=== PATIENT | male | born 1955 | race African-American/Black ===

== ENCOUNTER 2017-09-21 02:10 | Inpatient (IN) | payer MEDICARE ==
[~2017-09-21] VITALS: Ht 170.1 cm; Wt 90.4 kg
[2017-09-21] VITALS (10 sets, daily range): BP systolic 118–146; BP diastolic 69–85
--- NOTE | ~2017-09-21 | O ---
[place], [place] OPERATIVE NOTE NAME: JUANITA MALIK UNIT #: [id number] ROOM: 516 DOCTOR: JOSEPH MILLER,GOSIA BIRTHDATE: [birth year] DOS: 09/21/2017 GASTROENDOSCOPIC REPORT PROCEDURE: Today's procedure part of investigation of GI bleed is colonoscopy. PREMEDICATION: Versed and propofol. SCOPE: Olympus folding colonoscope 10L video. REPORT: After putting the patient in left lateral position and application of lubricant to the scope, the scope was introduced. Thereafter, under direct visualization, I advanced through the length of colon without difficulty. Base of the cecum explored, appendiceal site and ileocecal valve was photographed. Scope was withdrawn gradually. There is no gross bleeding; however, there was some old blood in the rectum, rectal pouch, which I washed and there was no evidence of ischemic colitis in segments. Scattered diverticulosis however noticed. GI reflection of the scope in the rectum does not yield gross internal hemorrhoids. Some external rectal tags were noticed. The patient has received an enema before colonoscopy that could have been traumatic and as a result some debris of blood in the rectum noticed. However, before his colonic prep, he has been complaining of rectal bleed as well. Therefore, this may signify that there is a small vasculature superficially bleeding at the rectum periodically. Therefore, we are going to consider Anucort-HC suppository 1 at bedtime. He is going to get regular diet today. Follow up on his H and H. We are going to withhold aspirin for 1 week if possible. GOSIA RUIZ MD CM:OPRECORD:OPERATIVE NOTE [id number] GOSIA RUIZ MD 09/21/17 1718 interface
--- NOTE | ~2017-09-21 | O ---
[place], [place] OPERATIVE NOTE NAME: JUANITA MALIK UNIT #: [id number] ROOM: [facility] DOCTOR: JOSEPH MILLERGOSIA BIRTHDATE: [birth year] DOS: 09/21/2017 GASTROENDOSCOPIC REPORT INDICATIONS: This gentleman has presented with a chief complaint of nausea, vomiting, abdominal pain, presence of blood in the stool. He had a CT scan of the abdomen and pelvis done in the Emergency Room, colonic diverticulosis, and cholelithiasis without evidence of cholecystitis. White blood cell was 5.9, H and H of 12 and 36. Lactic acid was normal. INR 1.0. Comprehensive metabolic panel, GFR greater than 60. Hypokalemia was corrected. Liver function test normal. Hemoglobin A1c 5.6. His H and H 11 and 31. PAST MEDICAL HISTORY: Past medical history associated with hypertension and hyperglycemia. PAST SURGICAL HISTORY: History of partial colectomy for diverticulitis, perforation. SOCIAL HISTORY: One case of beer per week, user of cannabis product, tobacco smoking as well. FAMILY HISTORY: Noncontributory. ALLERGIES: No known medication. MEDICATIONS: List including ranitidine and aspirin in addition to others reviewed. PROCEDURE: Today's procedure part of investigation is panendoscopy and colonoscopy. PREMEDICATION: Versed and propofol. SCOPE: Olympus forward-viewing gastroscope Q10 video. REPORT: After putting the patient in left lateral position and application of lubricant to the scope, the scope was introduced. Thereafter, under direct visualization, advanced through the length of esophagus without difficulty. Esophagus cervicothoracic distally within normal limit. Gastric pouch was entered. Evidence of gastritis was seen. Duodenal bulb, second and third part within normal limits. Antral biopsy obtained for H. pylori. IJ reflexion of the scope reveals cardia to be benign. Air was suctioned out. The patient was extubated, tolerated procedure well. IMPRESSION: Gastritis. No evidence of upper GI bleed actively. There was some droplets of the old blood in the gastric pouch signifying gastritis. The patient has been on aspirin. At this stage, we are going to proceed with colonoscopic evaluation. GASTROENDOSCOPIC REPORT [place], [place] OPERATIVE NOTE NAME: JUANITA MALIK UNIT #: [id number] ROOM: [facility] DOCTOR: JOSEPH MILLER,GOSIA BIRTHDATE: [birth year] PROCEDURE: Today's procedure part of investigation of GI bleed is colonoscopy. PREMEDICATION: Versed and propofol. SCOPE: Olympus folding colonoscope 10L video. REPORT: After putting the patient in left lateral position and application of lubricant to the scope, the scope was introduced. Thereafter, under direct visualization, advanced through the length of colon without difficulty. Base of the cecum explored, appendiceal site and ileocecal valve was photographed. Scope withdrawn gradually. There is no gross bleeding; however, there was some old blood in the rectum rectal pouch, which I washed and there was no evidence of ischemic colitis in segments. Scattered diverticulosis; however, noticed. GI reflection of the scope in the rectum does not yield gross internal hemorrhoids. Some external rectal tags were noticed. PLAN AND DISCUSSION: The patient has received an enema before colonoscopy that could have been traumatic and as a result some debris of blood in the rectum noticed. However, before is colonic prep he has been complaining of rectal bleed as well. Therefore, this may signify that there is a small vasculature superficially bleeding at the rectum periodically. Therefore, we are going to consider Anucort-HC suppository 1 at bedtime. He is going to get the regular diet today. Follow up on his H and H. We are going to withhold aspirin for 1 week if possible. GOSIA RUIZ MD CM:OPRECORD:OPERATIVE NOTE 1647 1517 GOSIA RUIZ MD 09/24/17 1516 interface
--- NOTE | ~2017-09-21 | O ---
[place], [place] OPERATIVE NOTE NAME: JUANITA MALIK UNIT #: [id number] ROOM: [facility] DOCTOR: GOSIA RUIZ MD BIRTHDATE: [birth year] DOS: 09/22/2017 GASTROENDOSCOPIC REPORT This is a 62-year-old patient who presented with chief complaint of rectal bleed, drop in H and H, status post previous partial colectomy on the right side. We are trying to define the source of bleeding, particularly that he has required 2 units of transfusion overnight bleed, today on aspirin, has been on hold. PROCEDURE: Today's part of investigation is colonoscopy. PREMEDICATION: Propofol. SCOPE: Olympus forwarding colonoscope 10L video. REPORT: After putting the patient in left lateral position and application of lubricant to rectal pouch and digital examination, scope was introduced. Thereafter, under direct visualization, advanced through the length of colon without difficulty. There is presence of blood all the way from the rectum to anastomotic site, therefore, visualization of detail losing site impractical. I approached anastomotic site with a high power water wash, I sprayed this area. There is no penetrated metallic clips or sutures that I can find, bleeding site cannot be defined. Scope was gradually withdrawn. Diverticulosis seen. The patient extubated, tolerated procedure well. IMPRESSION: Diverticulosis is status post right hemicolectomy with anastomotic site benign. PLAN AND DISCUSSION: We are going to hold Sandostatin. We are going to allow patient to stay in ICU, transfusion for blood count of 9 and 28 as necessary and standing by for bleeding scan, nuclear Radiology is going to be informed and in case he has another bloody BM and drop in H and H, we are going to proceed with bleeding scan. Sandostatin is going to be on hold. The patient is going to be kept on clear liquid. [place], [place] OPERATIVE NOTE NAME: JUANITA MALIK UNIT #: [id number] ROOM: [facility] DOCTOR: GOSIA RUIZ MD BIRTHDATE: [birth year] GOSIA RUIZ MD CM:OPRECORD:OPERATIVE NOTE 1634 1654 GOSIA RUIZ MD 09/22/17 1652 interface
[~2017-09-21 02:10] MED LIST: ASPIRIN81 M1 PO; AUGMENTIN 875875 MG PO; BP; CHOLESTEROL; DAYPRO600 M1 PO; HYDRODIURIL25 MG PO; MOTRIN800 MG PO; NAPROSYN250 MG PO; PEN-V500 MG PO; PRILOSEC20 M2 PO; RANITIDINE 7575 MG PO; SIMVASTATIN5 MG PO; VICODIN 5/500 505 MG PO
[2017-09-21 02:48] LABS: BASO % 0.5 % (0.0-1.0); EOS # 0.2 10*3/uL (0.0-0.4); EOS % 3.1 % (1.0-4.0); HEMATOCRIT 36.4 % (42.0-52.0); HEMOGLOBIN 12.7 g/dl (14.0-18.0); LYMPH # 2.9 10*3/uL (1.3-4.4); LYMPH % 48.3 % (27.0-41.0); MEAN CELL VOLUME 92.9 fl (80.0-94.0); MEAN CORPUSCULAR HGB 32.4 pg (27.0-31.0); MEAN CORPUSCULAR HGB CONC 34.9 g/dl (33.0-37.0); MEAN PLATELET VOLUME 9.7 fl (9.6-12.3); MONO # 0.7 10*3/uL (0.1-1.0); MONO % 11.2 % (3.0-9.0); NEUT # 2.2 10*3/uL (2.3-7.9); NEUT % 36.7 % (47.0-73.0); PLATELET COUNT AUTOMATED 208 10*3/uL (130-400); RED BLOOD COUNT 3.92 10*6/uL (4.50-5.90); WHITE BLOOD COUNT 5.9 10*3/uL (4.8-10.8)
[2017-09-21 02:58] LABS: ACT PARTIAL THROMBO TIME 21.6 SECONDS (20.8-31.5)
[2017-09-21 03:03] LABS: ALBUMIN 3.7 gm/dl (3.1-4.5); ALKALINE PHOSPHATASE 114 U/L (45-117); BUN 9 mg/dl (7-24); CHLORIDE 97 mmol/L (98-107); CREATININE 0.84 mg/dL (0.70-1.30); POTASSIUM 2.5 mmol/L (3.5-5.1); SGOT/AST 26 IU/L (3-35); SGPT/ALT 35 U/L (12-78); SODIUM 139 mmol/L (136-145); TOTAL PROTEIN 7.2 gm/dL (6.4-8.2)
[2017-09-21 08:01] LABS: BASO % 0.3 % (0.0-1.0); EOS # 0.1 10*3/uL (0.0-0.4); EOS % 0.8 % (1.0-4.0); HEMATOCRIT 31.9 % (42.0-52.0); HEMOGLOBIN 11.2 g/dl (14.0-18.0); LYMPH # 1.5 10*3/uL (1.3-4.4); LYMPH % 18.7 % (27.0-41.0); MEAN CELL VOLUME 93.8 fl (80.0-94.0); MEAN CORPUSCULAR HGB 32.9 pg (27.0-31.0); MEAN CORPUSCULAR HGB CONC 35.1 g/dl (33.0-37.0); MEAN PLATELET VOLUME 9.6 fl (9.6-12.3); MONO # 0.6 10*3/uL (0.1-1.0); MONO % 7.2 % (3.0-9.0); NEUT # 5.7 10*3/uL (2.3-7.9); NEUT % 72.6 % (47.0-73.0); PLATELET COUNT AUTOMATED 166 10*3/uL (130-400); WHITE BLOOD COUNT 7.9 10*3/uL (4.8-10.8)
[2017-09-21 08:22] LABS: ALBUMIN 3.4 gm/dl (3.1-4.5); BUN 10 mg/dl (7-24); CHLORIDE 101 mmol/L (98-107); CHOLESTEROL 103 mg/dL (<200); CREATININE 0.81 mg/dL (0.70-1.30); FREE T4 0.82 ng/dl (0.76-1.46); HDL CHOLESTEROL 53 mg/dl (40-60); LDL CHOLESTEROL 18 mg/dL (9-159); PHOSPHOROUS 3.8 mg/dL (2.5-4.9); POTASSIUM 3.2 mmol/L (3.5-5.1); SGOT/AST 24 IU/L (3-35); SGPT/ALT 30 U/L (12-78); SODIUM 138 mmol/L (136-145); TRIGLYCERIDES 161 mg/dl (<150); VLDL CHOLESTEROL 32 mg/dL (6-40)
[2017-09-21 08:27] LABS: ALKALINE PHOSPHATASE 95 U/L (45-117); TOTAL PROTEIN 6.3 gm/dL (6.4-8.2)
[2017-09-21 09:44] LABS: VITAMIN D, 25-HYDROXY 18.8 ng/mL (30-100)
[2017-09-21 12:16] LABS: HEMATOCRIT 31.7 % (42.0-52.0); HEMOGLOBIN 11.3 g/dl (14.0-18.0)
[2017-09-22] VITALS (14 sets, daily range): BP systolic 121–183; BP diastolic 56–90
[2017-09-22 06:25] LABS: BASO % 0.3 % (0.0-1.0); EOS # 0.1 10*3/uL (0.0-0.4); EOS % 1.5 % (1.0-4.0); HEMATOCRIT 26.8 % (42.0-52.0); LYMPH # 1.8 10*3/uL (1.3-4.4); LYMPH % 27.5 % (27.0-41.0); MEAN CELL VOLUME 96.8 fl (80.0-94.0); MEAN CORPUSCULAR HGB 32.5 pg (27.0-31.0); MEAN CORPUSCULAR HGB CONC 33.6 g/dl (33.0-37.0); MEAN PLATELET VOLUME 10.6 fl (9.6-12.3); MONO # 0.5 10*3/uL (0.1-1.0); MONO % 7.7 % (3.0-9.0); NEUT # 4.2 10*3/uL (2.3-7.9); NEUT % 62.5 % (47.0-73.0); PLATELET COUNT AUTOMATED 156 10*3/uL (130-400); RED BLOOD COUNT 2.77 10*6/uL (4.50-5.90); RED CELL DISTRI WIDTH 12.2 % (0-14.5); WHITE BLOOD COUNT 6.7 10*3/uL (4.8-10.8)
[2017-09-22 06:32] LABS: CHLORIDE 107 mmol/L (98-107); POTASSIUM 2.9 mmol/L (3.5-5.1); SODIUM 143 mmol/L (136-145)
[2017-09-22 06:39] LABS: ALKALINE PHOSPHATASE 81 U/L (45-117); BUN 6 mg/dl (7-24); CREATININE 0.82 mg/dL (0.70-1.30); SGOT/AST 20 IU/L (3-35); SGPT/ALT 23 U/L (12-78); TOTAL PROTEIN 5.7 gm/dL (6.4-8.2)
[2017-09-22 08:37] LABS: HEMATOCRIT 25.3 % (42.0-52.0); HEMOGLOBIN 8.6 g/dl (14.0-18.0)
[2017-09-22 12:11] LABS: HEMATOCRIT 22.6 % (42.0-52.0); HEMOGLOBIN 7.7 g/dl (14.0-18.0)
[2017-09-22 15:32] LABS: ACT PARTIAL THROMBO TIME 20.3 SECONDS (20.8-31.5)
[2017-09-22 18:25] LABS: HEMOGLOBIN 9.7 g/dl (14.0-18.0)
[2017-09-22 18:26] LABS: HEMATOCRIT 28.7 % (42.0-52.0)
[2017-09-23] VITALS (7 sets, daily range): BP systolic 110–154; BP diastolic 60–92
[2017-09-23 00:34] LABS: HEMATOCRIT 26.1 % (42.0-52.0); HEMOGLOBIN 8.9 g/dl (14.0-18.0)
[2017-09-23 06:20] LABS: HEMOGLOBIN 9.2 g/dl (14.0-18.0)
[2017-09-23 06:25] LABS: BASO % 0.4 % (0.0-1.0); EOS # 0.2 10*3/uL (0.0-0.4); HEMATOCRIT 27.4 % (42.0-52.0); HEMOGLOBIN 9.2 g/dl (14.0-18.0); LYMPH # 1.3 10*3/uL (1.3-4.4); LYMPH % 16.1 % (27.0-41.0); MEAN CORPUSCULAR HGB 31.3 pg (27.0-31.0); MEAN CORPUSCULAR HGB CONC 33.6 g/dl (33.0-37.0); MEAN PLATELET VOLUME 10.6 fl (9.6-12.3); MONO # 0.5 10*3/uL (0.1-1.0); MONO % 5.9 % (3.0-9.0); NEUT # 6.2 10*3/uL (2.3-7.9); NEUT % 75.2 % (47.0-73.0); PLATELET COUNT AUTOMATED 128 10*3/uL (130-400); RED BLOOD COUNT 2.94 10*6/uL (4.50-5.90); RED CELL DISTRI WIDTH 14.8 % (0-14.5); WHITE BLOOD COUNT 8.2 10*3/uL (4.8-10.8)
[2017-09-23 06:26] LABS: MEAN CELL VOLUME 93.2 fl (80.0-94.0)
[2017-09-23 06:40] LABS: ALBUMIN 2.5 gm/dl (3.1-4.5); BUN 7 mg/dl (7-24); CHLORIDE 111 mmol/L (98-107); CREATININE 0.68 mg/dL (0.70-1.30); PHOSPHOROUS 2.7 mg/dL (2.5-4.9); POTASSIUM 3.3 mmol/L (3.5-5.1); SGOT/AST 30 IU/L (3-35); SGPT/ALT 24 U/L (12-78); SODIUM 146 mmol/L (136-145)
[2017-09-23 06:42] LABS: ALKALINE PHOSPHATASE 62 U/L (45-117); TOTAL PROTEIN 4.9 gm/dL (6.4-8.2)
[2017-09-23 11:59] LABS: HEMATOCRIT 30.7 % (42.0-52.0); HEMOGLOBIN 9.8 g/dl (14.0-18.0)
== END 2017-09-23 14:49 | disposition short-term general hospital (02) | DRG 378 ==
LOC: ED 02:10 → EDHOLD 03:25 → 5E 03:37 → ICCU 09-22 12:32
PROVIDERS: Emergency Medicine; Family Medicine; Internal Medicine; Internal Medicine Gastroenterology; Student in an Organized Health Care Education/Training Program
PROC: 0DJD8ZZ Inspection of Lower Intestinal Tract, Via Natural or Artificial Opening Endoscopic (ICD-10-PCS; 2017-09-21)
PROC: 0DB68ZX Excision of Stomach, Via Natural or Artificial Opening Endoscopic, Diagnostic (ICD-10-PCS; 2017-09-21)
PROC: 0DJD8ZZ Inspection of Lower Intestinal Tract, Via Natural or Artificial Opening Endoscopic (ICD-10-PCS; principal; 2017-09-22)
PROC: 30233N1 Transfusion of Nonautologous Red Blood Cells into Peripheral Vein, Percutaneous Approach (ICD-10-PCS; principal; 2017-09-22)
DX: K29.71 Gastritis, unspecified, with bleeding (principal); D62 Acute posthemorrhagic anemia; K57.21 Diverticulitis of large intestine with perforation and abscess with bleeding; E87.8 Other disorders of electrolyte and fluid balance, not elsewhere classified; Z79.899 Other long term (current) drug therapy; K57.31 Diverticulosis of large intestine without perforation or abscess with bleeding; K76.0 Fatty (change of) liver, not elsewhere classified; I10 Essential (primary) hypertension; E87.6 Hypokalemia; R73.9 Hyperglycemia, unspecified; K44.9 Diaphragmatic hernia without obstruction or gangrene; D64.9 Anemia, unspecified; F17.210 Nicotine dependence, cigarettes, uncomplicated; R00.0 Tachycardia, unspecified; E55.9 Vitamin D deficiency, unspecified; E66.9 Obesity, unspecified; F12.10 Cannabis abuse, uncomplicated; Z87.19 Personal history of other diseases of the digestive system; Z79.82 Long term (current) use of aspirin; Z90.49 Acquired absence of other specified parts of digestive tract; Z83.3 Family history of diabetes mellitus; Z78.9 Other specified health status; Z71.6 Tobacco abuse counseling; Z68.31 Body mass index [BMI] 31.0-31.9, adult

== ENCOUNTER → 2017-10-05 | Outpatient (CLI) | payer MEDICARE ==
[2017-10-05 10:17] LABS: BASO % 0.1 % (0.0-1.0); EOS # 0.1 10*3/uL (0.0-0.4); EOS % 1.6 % (1.0-4.0); HEMATOCRIT 30.3 % (42.0-52.0); HEMOGLOBIN 9.9 g/dl (14.0-18.0); LYMPH # 1.4 10*3/uL (1.3-4.4); LYMPH % 20.6 % (27.0-41.0); MEAN CELL VOLUME 92.9 fl (80.0-94.0); MEAN CORPUSCULAR HGB 30.4 pg (27.0-31.0); MEAN CORPUSCULAR HGB CONC 32.7 g/dl (33.0-37.0); MEAN PLATELET VOLUME 10.4 fl (9.6-12.3); MONO # 0.5 10*3/uL (0.1-1.0); MONO % 7.4 % (3.0-9.0); NEUT # 4.8 10*3/uL (2.3-7.9); PLATELET COUNT AUTOMATED 375 10*3/uL (130-400); RED BLOOD COUNT 3.26 10*6/uL (4.50-5.90); WHITE BLOOD COUNT 6.8 10*3/uL (4.8-10.8)
== END | disposition home or self-care (01) ==
LOC: LAB 08:49
PROVIDERS: Internal Medicine Gastroenterology
DX: D64.9 Anemia, unspecified (principal)

== ENCOUNTER 2018-02-03 12:49 | Emergency (ER) | payer MEDICARE ==
[~2018-02-03] VITALS: Ht 170.1 cm; Wt 94.8 kg
== END 2018-02-03 13:46 | disposition home or self-care (01) ==
LOC: ED 12:49
DX: H11.31 Conjunctival hemorrhage, right eye (principal); Z79.899 Other long term (current) drug therapy; Z79.82 Long term (current) use of aspirin; Z87.891 Personal history of nicotine dependence

== ENCOUNTER → 2018-02-05 | Outpatient (CLI) | payer MEDICARE ==
[~2018-02-05] MED LIST changes: +GLUCOPHAGE500 M1 PO; +HYDROCODONE-AC1 EAC1 PO; +LIPITOR40 MG PO; +PANTOPRAZOLE SO40 MG PO; +ZESTRIL,PRINIVIL5 MG PO
[2018-02-05 10:37] LABS: ALBUMIN 3.7 gm/dl (3.1-4.5); ALKALINE PHOSPHATASE 122 U/L (45-117); BUN 6 mg/dl (7-24); CHLORIDE 99 mmol/L (98-107); CREATININE 0.83 mg/dL (0.70-1.30); POTASSIUM 2.6 mmol/L (3.5-5.1); SGOT/AST 88 IU/L (3-35); SGPT/ALT 87 U/L (12-78); SODIUM 138 mmol/L (136-145); TOTAL PROTEIN 7.4 gm/dL (6.4-8.2)
== END | disposition home or self-care (01) ==
LOC: LAB 09:29
PROVIDERS: Family Medicine
DX: E87.6 Hypokalemia (principal); R73.01 Impaired fasting glucose

== ENCOUNTER 2018-02-10 20:52 | Inpatient (IN) | payer MEDICARE ==
[~2018-02-10] VITALS: Ht 170.1 cm; Wt 96.2 kg
--- NOTE | ~2018-02-10 | EKG ---
[place], [place] ELECTROCARDIOGRAM REPORT NAME: JUANITA MALIK UNIT #: [id number] ROOM: 406 DOCTOR: FELIPA DRAFT REPORT BIRTHDATE: [birth year] [facility] Test Date: 2018-02-10 Test Time: 21:42:34 Pat Name: JUANITA MALIK Department: Room: 406 Gender: M Email Marketing Coordinator: SS RESP : 1955 Requested By: JOHANNE DAVE Order Number: [id number] Reading MD: Gerry Madison MD Measurements Intervals Bim Rate: 75 P: 44 [place]: 167 QRS: 13 QRSD: 107 T: 23 QT: 417 QTc: 466 Interpretive Statements Sinus rhythm Electronically Signed On 02-13-2018 11:55:52 PDT by Gerry Madison MD CM:EKGRPT:ELECTROCARDIOGRAM REPORT [id number] JOHANNE HUANG DRAFT REPORT JOHANNE DAVE DO
--- NOTE | ~2018-02-10 | ST ---
[place], [place] EXERCISE STRESS TEST REPORT NAME: JUANITA MALIK UNIT #: [id number] ROOM: 406 DOCTOR: MARGARITA MILLER,LEONIE BIRTHDATE: [birth year] DOS: 02/11/2018 EXERCISE NUCLEAR STRESS TEST REASON FOR TEST: Evaluation of chest pain. REFERRING PHYSICIAN: Dr. Wright. PHYSICAL EXAMINATION: NECK: Supple. LUNGS: Clear anteriorly. HEART: Regular rhythm. PROTOCOL: Tomas protocol. Total test time 5 minutes 30 seconds. Maximum heart rate 151 which is 94% percent target heart rate. Peak blood pressure 200/96, hypertensive response. Total mets 6.8 mets. SYMPTOMS: The patient developed mild shortness of breath and right shoulder pain, but no chest pain. EKG: Resting EKG showed sinus rhythm. Stress EKG showed no ischemia, no arrhythmias. CONCLUSION: Clinically, the patient was chest pain-free, he developed shortness of breath and some right shoulder pain. EKG nonischemic. POST-STRESS COMPLICATIONS: None. LEONIE AVILA MD CM:STRESS:EXERCISE STRESS TEST REPORT [id number] LEONIE AVILA MD
--- NOTE | ~2018-02-10 | CON ---
[place], [place] REPORT OF CONSULTATION NAME: JUANITA MALIK [facility] #: [id number] UNIT #: [id number] ROOM: 406 DOCTOR: MARGARITA MILLERLEONIE BIRTHDATE: [birth year] DOS: 02/11/2018 CARDIOLOGY CONSULTATION REASON FOR CONSULTATION: Chest pain. CLINICAL HISTORY: The patient is a 62-year-old gentleman admitted for right shoulder pain and dizziness. He denied any chest pain. His pain started in the top of his right shoulder, which is both at rest and exertion. This pain is radiated down towards the right arm. No shortness of breath with palpitation. No dizziness. No PND, orthopnea. He specifically denies any chest pain or chest tightness. Cardiology consulted for further evaluation of his right shoulder and right upper chest pain. The patient was seen in the stress lab area. He denies again any chest pain. No palpitation, no dizziness, no PND, no orthopnea, no fever and chills. No cough, no hemoptysis. He does smoke cigarettes and occasional marijuana. REVIEW OF SYSTEMS: Review of the 10 systems negative except as mentioned above. PAST MEDICAL HISTORY: Hypertension, non-morbid obesity, dyslipidemia, acid reflux, diverticulosis, hiatal hernia. ALLERGIES: No known drug allergies. PAST SURGICAL HISTORY: History of a colectomy in 1985 due to perforated diverticulitis. SOCIAL HISTORY: The patient does smoke cigarettes and also uses occasional marijuana. Also drinks one case of beer per week. FAMILY HISTORY: Nil contributory. HOME MEDICATIONS: Reviewed. PHYSICAL EXAMINATION: VITAL SIGNS: Blood pressure 113/71, pulse 68, respiration was 18, weight 91.6 kilos, BMI 33.2. GENERAL: Alert, comfortable, in no acute distress. HEAD AND NECK: Neck is supple, no distended neck veins, no carotid bruit. CHEST: Symmetrical, nontender. LUNGS: Clear to auscultation bilaterally. HEART: Regular rhythm. No S3. No palpable thrill. ABDOMEN: Benign, nontender. Bowel sounds normal. EXTREMITIES: Showed no edema. Distal pulses are palpable. The patient has no local tenderness in the right shoulder area. NEUROLOGIC: The patient is alert, oriented. No focal neurologic deficit. RECTAL: Deferred. GENITOURINARY: Deferred. [place], [place] REPORT OF CONSULTATION NAME: JUANITA MALIK UNIT #: [id number] ROOM: 406 DOCTOR: MARGARITA MILLER,LEONIE BIRTHDATE: [birth year] REVIEW OF THE DIAGNOSTIC TESTS: EKG and his labs reviewed. EKG showed normal sinus rhythm, no ischemic changes. The pertinent labs include a potassium of 3.4, BUN 6, creatinine 0.68 and troponins are negative x 2. IMPRESSION: 1. Atypical chest pain with the right shoulder and right upper chest wall pain, myocardial infarction ruled out. 2. Hypertension. 3. Mild hypokalemia, being replaced. 4. Tobacco use and marijuana use. 5. Non-morbid obesity. RECOMMENDATIONS: 1. Exercise nuclear stress test was scheduled due to chest pain and CAD risk factors. 2. Risk factor modification to quit smoking and drinking and also he quit using marijuana was discussed. 3. Replace his potassium chloride. 4. If the stress test is unremarkable, he can be discharged home from the cardiac standpoint. LEONIE AVILA MD CM:CONSTR:REPORT OF CONSULTATION 02/12/18 183 interface
[~2018-02-10 20:52] MED LIST changes: -GLUCOPHAGE500 M1 PO; -HYDROCODONE-AC1 EAC1 PO; -LIPITOR40 MG PO; -PANTOPRAZOLE SO40 MG PO; -ZESTRIL,PRINIVIL5 MG PO
[2018-02-10 20:53] VITALS: BP 142/76
[2018-02-10 21:45] LABS: BASO % 0.3 % (0.0-1.0); EOS # 0.1 10*3/uL (0.0-0.4); EOS % 1.4 % (1.0-4.0); HEMATOCRIT 36.1 % (42.0-52.0); HEMOGLOBIN 12.8 g/dl (14.0-18.0); LYMPH # 1.8 10*3/uL (1.3-4.4); LYMPH % 30.1 % (27.0-41.0); MEAN CELL VOLUME 92.8 fl (80.0-94.0); MEAN CORPUSCULAR HGB 32.9 pg (27.0-31.0); MEAN CORPUSCULAR HGB CONC 35.5 g/dl (33.0-37.0); MEAN PLATELET VOLUME 9.6 fl (9.6-12.3); MONO # 0.5 10*3/uL (0.1-1.0); MONO % 8.3 % (3.0-9.0); NEUT # 3.5 10*3/uL (2.3-7.9); NEUT % 59.7 % (47.0-73.0); PLATELET COUNT AUTOMATED 188 10*3/uL (130-400); RED BLOOD COUNT 3.89 10*6/uL (4.50-5.90); RED CELL DISTRI WIDTH 12.3 % (0-14.5); WHITE BLOOD COUNT 5.9 10*3/uL (4.8-10.8)
[2018-02-10 21:57] LABS: INTERNATIONAL NORM RATIO 0.9 (2.0-3.5)
[2018-02-10 22:01] LABS: ALBUMIN 3.8 gm/dl (3.1-4.5); ALKALINE PHOSPHATASE 114 U/L (45-117); BUN 6 mg/dl (7-24); CHLORIDE 99 mmol/L (98-107); CREATININE 0.72 mg/dL (0.70-1.30); SGOT/AST 62 IU/L (3-35); SGPT/ALT 53 U/L (12-78); SODIUM 139 mmol/L (136-145); TOTAL PROTEIN 7.8 gm/dL (6.4-8.2)
[2018-02-10 22:22] LABS: TROPONIN I < 0.015 ng/ml (<0.045)
[2018-02-10 22:23] LABS: POTASSIUM 2.4 mmol/L (3.5-5.1)
[2018-02-10 23:17] VITALS: BP 155/80
[2018-02-10 23:30] VITALS: BP 160/86
[2018-02-11] MEDS ORDERED: GLUCOPHAGE500 M1 PO (00:11)
[2018-02-11] MEDS ORDERED: LIPITOR40 MG PO (00:12)
[2018-02-11] MEDS ORDERED: PANTOPRAZOLE SO40 MG PO (00:12)
[2018-02-11] MEDS ORDERED: ZESTRIL,PRINIVIL5 MG PO (00:12)
[2018-02-11 05:52] LABS: BASO % 0.4 % (0.0-1.0); EOS # 0.1 10*3/uL (0.0-0.4); EOS % 1.1 % (1.0-4.0); HEMATOCRIT 32.4 % (42.0-52.0); HEMOGLOBIN 11.4 g/dl (14.0-18.0); LYMPH # 1.4 10*3/uL (1.3-4.4); LYMPH % 26.5 % (27.0-41.0); MEAN CELL VOLUME 93.4 fl (80.0-94.0); MEAN CORPUSCULAR HGB 32.9 pg (27.0-31.0); MEAN CORPUSCULAR HGB CONC 35.2 g/dl (33.0-37.0); MEAN PLATELET VOLUME 9.8 fl (9.6-12.3); MONO # 0.5 10*3/uL (0.1-1.0); MONO % 9.4 % (3.0-9.0); NEUT # 3.4 10*3/uL (2.3-7.9); NEUT % 62.2 % (47.0-73.0); PLATELET COUNT AUTOMATED 178 10*3/uL (130-400); RED BLOOD COUNT 3.47 10*6/uL (4.50-5.90); RED CELL DISTRI WIDTH 12.3 % (0-14.5); WHITE BLOOD COUNT 5.4 10*3/uL (4.8-10.8)
[2018-02-11 06:00] LABS: BUN 6 mg/dl (7-24); CHLORIDE 105 mmol/L (98-107); CREATININE 0.68 mg/dL (0.70-1.30); PHOSPHOROUS 3.1 mg/dL (2.5-4.9); POTASSIUM 3.3 mmol/L (3.5-5.1); SODIUM 140 mmol/L (136-145)
[2018-02-11 08:00] VITALS: BP 113/71
[2018-02-11 12:00] VITALS: BP 157/82
[2018-02-11 16:00] VITALS: BP 151/82
[2018-02-11 20:00] VITALS: BP 159/90
[2018-02-12] VITALS: BP 153/88
[2018-02-12 06:14] LABS: BASO % 0.2 % (0.0-1.0); EOS # 0.1 10*3/uL (0.0-0.4); EOS % 1.7 % (1.0-4.0); HEMATOCRIT 33.4 % (42.0-52.0); HEMOGLOBIN 11.3 g/dl (14.0-18.0); LYMPH # 1.6 10*3/uL (1.3-4.4); LYMPH % 27.2 % (27.0-41.0); MEAN CELL VOLUME 93.8 fl (80.0-94.0); MEAN CORPUSCULAR HGB 31.7 pg (27.0-31.0); MEAN CORPUSCULAR HGB CONC 33.8 g/dl (33.0-37.0); MEAN PLATELET VOLUME 10.1 fl (9.6-12.3); MONO # 0.5 10*3/uL (0.1-1.0); MONO % 8.9 % (3.0-9.0); NEUT # 3.5 10*3/uL (2.3-7.9); NEUT % 61.7 % (47.0-73.0); PLATELET COUNT AUTOMATED 179 10*3/uL (130-400); RED BLOOD COUNT 3.56 10*6/uL (4.50-5.90); RED CELL DISTRI WIDTH 12.1 % (0-14.5); WHITE BLOOD COUNT 5.7 10*3/uL (4.8-10.8)
[2018-02-12 06:35] LABS: BUN 7 mg/dl (7-24); CHLORIDE 105 mmol/L (98-107); CREATININE 0.64 mg/dL (0.70-1.30); SODIUM 141 mmol/L (136-145)
[2018-02-12 08:00] VITALS: BP 160/82
[2018-02-12] MEDS ORDERED: HYDROCODONE-AC1 EAC1 PO (08:50)
== END 2018-02-12 09:08 | disposition home or self-care (01) | DRG 556 ==
LOC: ED 20:52 → 4E 22:42 → EDHOLD 22:42 → 4E 23:22
PROVIDERS: Emergency Medicine; Internal Medicine; Student in an Organized Health Care Education/Training Program
PROC: 4A02XM4 Measurement of Cardiac Total Activity, External Approach (ICD-10-PCS; principal; 2018-02-11)
DX: M25.511 Pain in right shoulder (principal); E87.6 Hypokalemia; K76.0 Fatty (change of) liver, not elsewhere classified; I10 Essential (primary) hypertension; F12.10 Cannabis abuse, uncomplicated; K57.30 Diverticulosis of large intestine without perforation or abscess without bleeding; K44.9 Diaphragmatic hernia without obstruction or gangrene; F17.210 Nicotine dependence, cigarettes, uncomplicated; E78.5 Hyperlipidemia, unspecified; K21.9 Gastro-esophageal reflux disease without esophagitis; E66.8 Other obesity; E11.65 Type 2 diabetes mellitus with hyperglycemia; R74.0 Nonspecific elevation of levels of transaminase and lactic acid dehydrogenase [LDH]; E55.9 Vitamin D deficiency, unspecified; D64.9 Anemia, unspecified; R07.89 Other chest pain; M47.892 Other spondylosis, cervical region; Z79.82 Long term (current) use of aspirin; Z71.6 Tobacco abuse counseling; Z90.49 Acquired absence of other specified parts of digestive tract; Z83.3 Family history of diabetes mellitus; Z68.33 Body mass index [BMI] 33.0-33.9, adult

== ENCOUNTER → 2018-04-23 | Outpatient (CLI) | payer MEDICARE ==
[~2018-04-23] MED LIST changes: +GLUCOPHAGE500 M1 PO; +HYDROCODONE-AC1 EAC1 PO; +LIPITOR40 MG PO; +PANTOPRAZOLE SO40 MG PO; +ZESTRIL,PRINIVIL5 MG PO
== END | disposition home or self-care (01) ==
LOC: CT 14:00
DX: I62.9 Nontraumatic intracranial hemorrhage, unspecified (principal)

== ENCOUNTER → 2018-05-03 | Outpatient (CLI) | payer MEDICARE | END | disposition home or self-care (01) | LOC: US 02:51 | DX: K80.20 Calculus of gallbladder without cholecystitis without obstruction (principal); R74.0 Nonspecific elevation of levels of transaminase and lactic acid dehydrogenase [LDH] ==

== ENCOUNTER → 2020-06-24 | Outpatient (CLI) | payer MEDICARE ==
[2020-06-24 12:18] LABS: BILIRUBIN Negative (Negative); BLOOD Trace-Lysed (Negative); CLARITY Clear (Clear); COLOR Yellow (Yellow); GLUCOSE Negative (Negative); KETONE Negative (Negative); LEUKO ESTERASE Negative (Negative); NITRITE Negative (Negative); SPECIFIC GRAVITY 1.015 (1.001-1.030); UROBILINOGEN 0.2 E.U./dl (0.0-1.0)
[2020-06-24 12:35] LABS: EPITHELIAL CELLS 0-2; MUCOUS 1+; RBC 0-2 rbc/hpf (0-2)
[2020-06-24 12:41] LABS: ALKALINE PHOSPHATASE 126 U/L (45-117); BUN 9 mg/dl (7-24); CHLORIDE 109 mmol/L (98-107); CHOLESTEROL 160 mg/dL (<200); CREATININE 0.82 mg/dL (0.70-1.30); HDL CHOLESTEROL 68 mg/dl (40-60); LDL CHOLESTEROL 66 mg/dL (9-159); POTASSIUM 3.8 mmol/L (3.5-5.1); SGOT/AST 27 IU/L (3-35); SGPT/ALT 68 U/L (12-78); SODIUM 140 mmol/L (136-145); TOTAL PROTEIN 7.9 gm/dL (6.4-8.2); TRIGLYCERIDES 132 mg/dl (<150); VLDL CHOLESTEROL 26 mg/dL (6-40)
== END | disposition home or self-care (01) ==
LOC: LAB 11:23
PROVIDERS: ATTEND Family Medicine
DX: Z12.5 Encounter for screening for malignant neoplasm of prostate (principal); E11.9 Type 2 diabetes mellitus without complications; R36.1 Hematospermia

== ENCOUNTER 2020-09-08 10:36 | Emergency (ER) | payer MEDICARE ==
[~2020-09-08] VITALS: Wt 90.7 kg
== END 2020-09-08 11:29 | disposition home or self-care (01) ==
LOC: ED 10:36
DX: R04.0 Epistaxis (principal); Z79.899 Other long term (current) drug therapy; Z79.84 Long term (current) use of oral hypoglycemic drugs; Z79.82 Long term (current) use of aspirin

== ENCOUNTER 2022-05-28 09:48 | Emergency (ER) | payer MEDICARE ==
[~2022-05-28 09:48] MED LIST changes: +OMEPRAZOLE40 MG PO
[2022-05-28] MEDS ORDERED: MEDROL DOSEPAK4 MG PO (10:45)
== END 2022-05-28 11:00 | disposition home or self-care (01) ==
LOC: ED 09:48
DX: M77.52 Other enthesopathy of left foot and ankle (principal); Z90.89 Acquired absence of other organs; Z98.890 Other specified postprocedural states; F17.290 Nicotine dependence, other tobacco product, uncomplicated; F10.90 Alcohol use, unspecified, uncomplicated

== ENCOUNTER → 2022-08-14 | Day surgery (SDC) | payer MEDICARE ==
[~2022-08-14] VITALS: Ht 170.1 cm; Wt 90.7 kg
[~2022-08-14] MED LIST changes: +MEDROL DOSEPAK4 MG PO
[2022-08-14 08:55] VITALS: BP 138/69
[2022-08-14 09:10] VITALS: BP 110/50
[2022-08-14 09:25] VITALS: BP 133/71
== END | disposition home or self-care (01) ==
LOC: SDC 08-10 10:15
PROVIDERS: ATTEND Surgery
DX: Z12.11 Encounter for screening for malignant neoplasm of colon (principal); K57.30 Diverticulosis of large intestine without perforation or abscess without bleeding; I10 Essential (primary) hypertension; E11.9 Type 2 diabetes mellitus without complications; E78.00 Pure hypercholesterolemia, unspecified; F17.210 Nicotine dependence, cigarettes, uncomplicated; Z90.49 Acquired absence of other specified parts of digestive tract; Z98.0 Intestinal bypass and anastomosis status
CPT/HCPCS: 00812; G0121

== ENCOUNTER 2023-02-27 10:51 | Emergency (ER) | payer MEDICARE ==
[~2023-02-27] VITALS: Wt 90.7 kg
[2023-02-27 11:48] LABS: BASO % 0.4 % (0.0-1.0); EOS # 0.2 10*3/uL (0.0-0.4); EOS % 2.6 % (1.0-4.0); LYMPH # 2.2 10*3/uL (1.3-4.4); LYMPH % 29.9 % (27.0-41.0); MEAN CELL VOLUME 92.4 fl (80.0-94.0); MEAN CORPUSCULAR HGB 32.1 pg (27.0-31.0); MEAN CORPUSCULAR HGB CONC 34.7 g/dl (33.0-37.0); MEAN PLATELET VOLUME 9.7 fl (9.6-12.3); MONO # 0.5 10*3/uL (0.1-1.0); MONO % 7.4 % (3.0-9.0); NEUT # 4.3 10*3/uL (2.3-7.9); NEUT % 59.6 % (47.0-73.0); PLATELET COUNT AUTOMATED 265 10*3/uL (130-400); RED BLOOD COUNT 3.68 10*6/uL (4.50-5.90); RED CELL DISTRI WIDTH 11.2 % (0-14.5); WHITE BLOOD COUNT 7.3 10*3/uL (4.8-10.8)
[2023-02-27 12:12] LABS: ALKALINE PHOSPHATASE 112 U/L (46-116); BUN 5 mg/dl (9-23); CHLORIDE 104 mmol/L (98-107); POTASSIUM 3.7 mmol/L (3.4-5.1); SGPT/ALT 28 U/L (10-49); TOTAL PROTEIN 7.2 gm/dL (6.0-8.0)
[2023-02-27] MEDS ORDERED: HYDROCODONE-AC1 EAC1 PO (13:56)
[2023-02-27] MEDS ORDERED: CEPHALEXIN500 M1 PO (13:57)
== END 2023-02-27 14:06 | disposition home or self-care (01) ==
LOC: ED 10:51
PROVIDERS: Student in an Organized Health Care Education/Training Program
DX: L03.116 Cellulitis of left lower limb (principal); M79.89 Other specified soft tissue disorders; F17.200 Nicotine dependence, unspecified, uncomplicated; Z79.899 Other long term (current) drug therapy; Z79.82 Long term (current) use of aspirin; Z98.890 Other specified postprocedural states

== ENCOUNTER 2024-03-18 17:04 | Emergency (ER) | payer SELFPAY ==
[~2024-03-18] VITALS: Ht 170.1 cm; Wt 86.2 kg
[~2024-03-18 17:04] MED LIST changes: +CEPHALEXIN500 M1 PO
[2024-03-18 17:53] LABS: BILIRUBIN Negative (Negative); BLOOD Negative (Negative); CLARITY Clear (Clear); COLOR Yellow (Yellow); GLUCOSE Negative (Negative); KETONE Trace (Negative); LEUKO ESTERASE 1+ (Negative); NITRITE Negative (Negative); PH 5.5 (4.5-8.0); SPECIFIC GRAVITY 1.015 (1.001-1.030); UROBILINOGEN 0.2 E.U./dl (0.0-1.0)
[2024-03-18 18:00] LABS: URINE AMPHETAMINES Negative (1000ng/ml); URINE BARBITURATES Negative (200ng/ml); URINE BENZODIAZEPINES Negative (200ng/ml); URINE CANNABINOIDS (THC) Positive (50ng/ml); URINE COCAINE Negative (300ng/ml); URINE METHADONE Negative (300ng/ml); URINE OPIATES Negative (300ng/ml); URINE PHENCYCLIDINE Negative (25ng/ml)
[2024-03-18 18:01] LABS: MUCOUS TRACE
[2024-03-18 18:09] LABS: BASO % 0.5 % (0.0-1.0); EOS # 0.1 10*3/uL (0.0-0.4); EOS % 0.9 % (1.0-4.0); HEMATOCRIT 34.7 % (42.0-52.0); LYMPH # 3.1 10*3/uL (1.3-4.4); LYMPH % 35.6 % (27.0-41.0); MEAN CORPUSCULAR HGB 31.4 pg (27.0-31.0); MEAN CORPUSCULAR HGB CONC 33.4 g/dl (33.0-37.0); MEAN PLATELET VOLUME 8.9 fl (9.6-12.3); MONO # 0.6 10*3/uL (0.1-1.0); MONO % 6.8 % (3.0-9.0); NEUT # 4.9 10*3/uL (2.3-7.9); NEUT % 55.9 % (47.0-73.0); PLATELET COUNT AUTOMATED 275 10*3/uL (130-400); RED BLOOD COUNT 3.69 10*6/uL (4.50-5.90); RED CELL DISTRI WIDTH 11.5 % (0-14.5); WHITE BLOOD COUNT 8.8 10*3/uL (4.8-10.8)
[2024-03-18 18:27] LABS: BUN 21 mg/dl (9-23); CHLORIDE 102 mmol/L (98-107); ETHYL ALCOHOL < 3.0 mg/dl (<3); POTASSIUM 2.9 mmol/L (3.4-5.1)
[2024-03-18] MEDS ORDERED: POTASSIUM CHLORIDE 20 MEQ TAB PO ONE (19:00)
[2024-03-18] MEDS ORDERED: MAGNESIUM OXIDE 400 MG TAB PO ONE (19:00)
== END 2024-03-18 21:08 | disposition home or self-care (01) ==
LOC: ED 17:04
PROVIDERS: Internal Medicine
DX: E87.6 Hypokalemia (principal); E83.42 Hypomagnesemia; R20.0 Anesthesia of skin; R20.2 Paresthesia of skin; E11.9 Type 2 diabetes mellitus without complications; E78.00 Pure hypercholesterolemia, unspecified; I10 Essential (primary) hypertension; F12.90 Cannabis use, unspecified, uncomplicated; F17.200 Nicotine dependence, unspecified, uncomplicated; Z98.890 Other specified postprocedural states; Z79.899 Other long term (current) drug therapy

== ENCOUNTER → 2025-02-20 | Outpatient (CLI) | payer MEDICARE ==
[2025-02-20 13:17] LABS: BASO # 0.0 10*3/uL (0.0-0.1); BASO % 0.2 % (0.0-1.0); EOS # 0.1 10*3/uL (0.0-0.4); EOS % 1.8 % (1.0-4.0); MEAN CELL VOLUME 93.7 fl (80.0-94.0); MEAN CORPUSCULAR HGB 31.6 pg (27.0-31.0); MEAN PLATELET VOLUME 9.3 fl (9.6-12.3); MONO # 0.5 10*3/uL (0.1-1.0); MONO % 8.2 % (3.0-9.0); NEUT # 2.6 10*3/uL (2.3-7.9); NEUT % 47.2 % (47.0-73.0); NUCLEATED RED BLOOD CELL 0.0 % (0.0-0.0); NUCLEATED RED BLOOD CELL 0.0 10*3/uL (0.0-0.0); PLATELET COUNT AUTOMATED 216 10*3/uL (130-400); RED CELL DISTRI WIDTH 11.8 % (0-14.5)
[2025-02-20 13:38] LABS: BUN 8 mg/dl (9-23); LDL CHOLESTEROL 46 mg/dL (9-159); SGPT/ALT 14 U/L (5-49)
== END | disposition home or self-care (01) ==
LOC: LAB 12:34
PROVIDERS: ATTEND Internal Medicine Hematology & Oncology
DX: I10 Essential (primary) hypertension (principal); E78.2 Mixed hyperlipidemia; E11.9 Type 2 diabetes mellitus without complications; G62.9 Polyneuropathy, unspecified; Z12.5 Encounter for screening for malignant neoplasm of prostate

== ENCOUNTER 2025-03-25 15:24 | Emergency (ER) | payer OTHER ==
[~2025-03-25] VITALS: Ht 172.7 cm; Wt 90.7 kg
[2025-03-25] MEDS ORDERED: Ondansetron Hydrochloride 4 MG/2 ML VIAL IV ONE (15:35)
[2025-03-25 15:52] LABS: BASO # 0.0 10*3/uL (0.0-0.1); BASO % 0.3 % (0.0-1.0); EOS # 0.1 10*3/uL (0.0-0.4); EOS % 1.1 % (1.0-4.0); MEAN CELL VOLUME 95.0 fl (80.0-94.0); MEAN CORPUSCULAR HGB 31.8 pg (27.0-31.0); MEAN PLATELET VOLUME 9.5 fl (9.6-12.3); MONO # 0.6 10*3/uL (0.1-1.0); MONO % 7.9 % (3.0-9.0); NEUT # 3.8 10*3/uL (2.3-7.9); NEUT % 51.8 % (47.0-73.0); NUCLEATED RED BLOOD CELL 0.0 % (0.0-0.0); NUCLEATED RED BLOOD CELL 0.0 10*3/uL (0.0-0.0); PLATELET COUNT AUTOMATED 252 10*3/uL (130-400); RED CELL DISTRI WIDTH 11.9 % (0-14.5)
[2025-03-25 16:11] LABS: BUN 11 mg/dl (9-23)
[2025-03-25] MEDS ORDERED: HYDROCODONE-AC1 EAC1 PO (19:35)
[2025-03-25] MEDS ORDERED: Acetaminophen/Hydrocodone ES 7.5/325 tablet PO ONE (19:35)
== END 2025-03-25 19:52 | disposition home or self-care (01) ==
LOC: ED 15:24
PROVIDERS: Emergency Medicine
DX: S22.42XA Multiple fractures of ribs, left side, initial encounter for closed fracture (principal); D64.9 Anemia, unspecified; F17.200 Nicotine dependence, unspecified, uncomplicated; Z79.899 Other long term (current) drug therapy; Z79.82 Long term (current) use of aspirin; Z98.890 Other specified postprocedural states; X50.1XXA Overexertion from prolonged static or awkward postures, initial encounter; Y93.89 Activity, other specified; Y92.89 Other specified places as the place of occurrence of the external cause; Y99.8 Other external cause status

== ENCOUNTER 2025-04-27 09:51 | Emergency (ER) | payer OTHER ==
[~2025-04-27] VITALS: Ht 170.1 cm; Wt 86.2 kg
[2025-04-27 11:48] LABS: BASO # 0.0 10*3/uL (0.0-0.1); BASO % 0.3 % (0.0-1.0); EOS # 0.2 10*3/uL (0.0-0.4); EOS % 1.6 % (1.0-4.0); MEAN CELL VOLUME 95.0 fl (80.0-94.0); MEAN CORPUSCULAR HGB 32.1 pg (27.0-31.0); MEAN PLATELET VOLUME 9.2 fl (9.6-12.3); MONO # 0.6 10*3/uL (0.1-1.0); MONO % 6.9 % (3.0-9.0); NEUT # 6.4 10*3/uL (2.3-7.9); NEUT % 70.6 % (47.0-73.0); NUCLEATED RED BLOOD CELL 0.0 % (0.0-0.0); NUCLEATED RED BLOOD CELL 0.0 10*3/uL (0.0-0.0); PLATELET COUNT AUTOMATED 233 10*3/uL (130-400); RED CELL DISTRI WIDTH 11.9 % (0-14.5)
[2025-04-27 12:08] LABS: BUN 7 mg/dl (9-23)
[2025-04-27] MEDS ORDERED: INDOMETHACIN50 MG PO (12:43)
== END 2025-04-27 13:34 | disposition home or self-care (01) ==
LOC: ED 09:51
DX: M06.4 Inflammatory polyarthropathy (principal); F17.210 Nicotine dependence, cigarettes, uncomplicated; F12.90 Cannabis use, unspecified, uncomplicated; Z98.890 Other specified postprocedural states; Z86.718 Personal history of other venous thrombosis and embolism

== ENCOUNTER 2025-05-12 13:01 | Emergency (ER) | payer OTHER ==
[~2025-05-12] VITALS: Ht 170.1 cm; Wt 86.2 kg
[~2025-05-12 13:01] MED LIST changes: +INDOMETHACIN50 MG PO
[2025-05-12] MEDS ORDERED: Ondansetron Hydrochloride 4 MG/2 ML VIAL IV ONE (13:30)
[2025-05-12 14:03] LABS: BASO # 0.0 10*3/uL (0.0-0.1); BASO % 0.3 % (0.0-1.0); EOS # 0.0 10*3/uL (0.0-0.4); EOS % 0.4 % (1.0-4.0); MEAN CELL VOLUME 93.2 fl (80.0-94.0); MEAN CORPUSCULAR HGB 32.0 pg (27.0-31.0); MEAN PLATELET VOLUME 9.3 fl (9.6-12.3); MONO # 0.7 10*3/uL (0.1-1.0); MONO % 7.6 % (3.0-9.0); NEUT # 5.8 10*3/uL (2.3-7.9); NEUT % 63.4 % (47.0-73.0); NUCLEATED RED BLOOD CELL 0.0 % (0.0-0.0); NUCLEATED RED BLOOD CELL 0.0 10*3/uL (0.0-0.0); PLATELET COUNT AUTOMATED 292 10*3/uL (130-400); RED CELL DISTRI WIDTH 12.1 % (0-14.5)
[2025-05-12 14:29] LABS: BUN 9 mg/dl (9-23)
[2025-05-12] MEDS ORDERED: PREDNISONE20 M1 PO (16:14)
== END 2025-05-12 17:02 | disposition home or self-care (01) ==
LOC: ED 13:01
PROVIDERS: Emergency Medicine
DX: M87.237 Osteonecrosis due to previous trauma of right carpus (principal); M25.531 Pain in right wrist; F17.200 Nicotine dependence, unspecified, uncomplicated; Z79.899 Other long term (current) drug therapy; Z79.82 Long term (current) use of aspirin; Z79.84 Long term (current) use of oral hypoglycemic drugs; Z98.890 Other specified postprocedural states